=== PATIENT | female | born 1995 | race American Indian/Alaskan Native ===

== ENCOUNTER 2019-09-25 14:59 | Emergency (ER) | payer OTHER, MEDICAID ==
[2019-09-25 15:07] VITALS: BP 99/60
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
== END 2019-09-25 16:08 | disposition left against medical advice (07) ==
LOC: ED 14:59
DX: M79.671 Pain in right foot (principal); V87.7XXA Person injured in collision between other specified motor vehicles (traffic), initial encounter; Y93.89 Activity, other specified; Y92.488 Other paved roadways as the place of occurrence of the external cause; Y99.8 Other external cause status
CPT/HCPCS: 99282